=== PATIENT | male | born 1950 | race Caucasian/White ===

== ENCOUNTER → 2016-11-22 | Outpatient (CLI) | payer MEDICARE, BC ==
[~2016-11-22] MED LIST: ASPEC325 PO; CLB200 PO; LOSA1TAB38 PO; METF1000 PO; METO-551 PO; MULT-506 PO; OMEG10007 PO; OXYSR10 PO; SIMV20TA2 PO; SNK PO
[2016-11-22 13:09] LABS: ESTIMATED AVERAGE GLUCOSE 143 mg/dl; HA1C FLAG Normal (Normal)
[2016-11-22 14:01] LABS: CHOLESTEROL/HDL RATIO 4.5; THYROID STIMULATING HORMONE 2.78 uIu/ml (0.300-4.500)
[2016-11-22 20:01] LABS: RATIO 307.1 mcg/mg (0-30.0)
== END | disposition home or self-care (01) ==
LOC: C.LABMFLN 11:30
PROVIDERS: ATTEND Family Medicine
DX: E11.9 Type 2 diabetes mellitus without complications (principal); E78.5 Hyperlipidemia, unspecified

== ENCOUNTER → 2016-12-10 | Outpatient (CLI) | payer MEDICARE, BC ==
[2016-12-10 10:06] LABS: PATIENT HEIGHT 182.9 cm
[2016-12-10 13:40] LABS: BLOOD UREA NITROGEN 17 mg/dl (7-18); BUN/CREATININE RATIO 16.8 (10-20); CALCIUM 9.8 mg/dl (8.5-10.1); CARBON DIOXIDE 25 mmol/L (21-32); CHLORIDE 103 mmol/L (98-107); CREATININE 0.98 mg/dl (0.60-1.40); GLUCOSE 145 mg/dl (70-99); PHOSPHORUS 3.2 mg/dl (2.5-4.9); POTASSIUM 4.6 mmol/L (3.5-5.1); SODIUM 139 mmol/L (136-145)
[2016-12-10 13:52] LABS: URINE TOTAL PROTEIN 24.1 mg/dl (0-11.9)
[2016-12-10 13:55] LABS: URINE APPEARANCE CLOUDY (CLEAR); URINE BILIRUBIN NEG (NEG); URINE COLOR DK YELLOW; URINE EPITHELIAL CELL AUTO 0-5 /lpf (0-5); URINE NITRITE POS (NEG); URINE PH 5.5 (4.5-7.5); URINE SPECIFIC GRAVITY 1.021 (1.000-1.030); UROBILINOGEN NEG (NEG)
[2016-12-10 13:58] LABS: MANUAL MICROSCOPIC REQUIRED? NO; REVIEW REQ? NO
[2016-12-10 14:03] LABS: URINE PROTIEN/CREAT RATIO 0.2 (0-0.2); URINE TOTAL PROTEIN 35.8 mg/dl (0-11.9)
[2016-12-10 15:18] LABS: URINE TOTAL PROTEIN CALC 277.2 mg/24 hr (0-149.1)
[2016-12-12 07:48] LABS: ALBUMIN % 51.62 %; ALPHA-2-GLOBULIN % 14.45 %; CREATININE UR 175 MG/DL (20-370); GAMMA GLOBULIN % 12.81 %
[2016-12-13 16:36] LABS: ALBUMIN 4.3 G/DL (3.8-4.8); TOTAL PROTEIN 7.2 G/DL (6.2-8.3)
== END | disposition home or self-care (01) ==
LOC: C.LABMFLN 12:04
PROVIDERS: ATTEND Internal Medicine Nephrology
DX: R80.9 Proteinuria, unspecified (principal)

== ENCOUNTER → 2017-02-21 | Outpatient (CLI) | payer MEDICARE, BC ==
[2017-02-21 13:09] LABS: ESTIMATED AVERAGE GLUCOSE 134 mg/dl; HA1C FLAG Normal (Normal)
== END | disposition home or self-care (01) ==
LOC: C.LABMFLN 09:42
PROVIDERS: ATTEND Family Medicine
DX: E11.9 Type 2 diabetes mellitus without complications (principal)

== ENCOUNTER → 2017-05-30 | Outpatient (CLI) | payer MEDICARE, BC ==
[2017-05-30 13:49] LABS: ESTIMATED AVERAGE GLUCOSE 126 mg/dl; HA1C FLAG Normal (Normal)
== END | disposition home or self-care (01) ==
LOC: C.LABMFLN 11:03
PROVIDERS: ATTEND Family Medicine
DX: Z00.00 Encounter for general adult medical examination without abnormal findings (principal); E11.9 Type 2 diabetes mellitus without complications

== ENCOUNTER → 2017-09-12 | Outpatient (CLI) | payer MEDICARE ==
[2017-09-12 17:58] LABS: BASO % 0.5 %; BASO ABS # 0.02 K/uL (0-0.2); COMPLETE YES; EOS % 2.9 %; HEMATOCRIT 42.7 % (42-52); IG% 0.2 %; LYMPH % 24.6 %; LYMPH ABS # 1.09 K/uL (1.2-3.4); MEAN PLATELET VOLUME 10.1 fL (7.4-10.4); MONO % 14.7 %; NEUT % 57.1 %; PLATELET COUNT 176 K/uL (130-400); RED BLOOD COUNT 4.27 M/uL (4.7-6.1); WHITE BLOOD COUNT 4.43 K/uL (4.8-10.8)
[2017-09-12 18:07] LABS: BLOOD UREA NITROGEN 19 mg/dl (7-18); BUN/CREATININE RATIO 18.1 (10-20); CALCIUM 9.5 mg/dl (8.5-10.1); CARBON DIOXIDE 29 mmol/L (21-32); CHLORIDE 105 mmol/L (98-107); CREATININE 1.05 mg/dl (0.60-1.40); GLUCOSE 117 mg/dl (70-99); POTASSIUM 4.3 mmol/L (3.5-5.1); SODIUM 137 mmol/L (136-145)
[2017-09-12 18:08] LABS: PHOSPHORUS 2.5 mg/dl (2.5-4.9)
[2017-09-13 06:45] LABS: ESTIMATED AVERAGE GLUCOSE 131 mg/dl; HA1C FLAG Normal (Normal)
== END | disposition home or self-care (01) ==
LOC: C.LABMFLN 14:28
PROVIDERS: ATTEND Family Medicine
DX: E11.9 Type 2 diabetes mellitus without complications (principal)

== ENCOUNTER → 2017-12-18 | Outpatient (CLI) | payer MEDICARE ==
[2017-12-18 13:14] LABS: HEMOGLOBIN A1C 6.4 % (4.5-5.6)
[2017-12-18 13:25] LABS: ALBUMIN 3.8 gm/dl (3.4-5.0); ALT/SGPT 34 U/L (12-78); BLOOD UREA NITROGEN 19 mg/dl (7-18); CALCIUM 9.3 mg/dl (8.5-10.1); CARBON DIOXIDE 27 mmol/L (21-32); CHOLESTEROL 151 mg/dl (0-200); CREATININE 1.03 mg/dl (0.60-1.40); GLUCOSE 139 mg/dl (70-99); POTASSIUM 4.2 mmol/L (3.5-5.1); SODIUM 137 mmol/L (136-145)
[2017-12-18 13:36] LABS: ALKALINE PHOSPHATASE 67 U/L (45-117); AST/SGOT 15 U/L (15-37); LDL CHOLESTEROL CALCULATED 79 mg/dl; TOTAL PROTEIN 7.4 gm/dl (6.4-8.2)
== END | disposition home or self-care (01) ==
LOC: C.LABMFLN 09:26
PROVIDERS: ATTEND Family Medicine
DX: E11.9 Type 2 diabetes mellitus without complications (principal); E78.5 Hyperlipidemia, unspecified

== ENCOUNTER → 2018-04-24 | Outpatient (CLI) | payer MEDICARE ==
[2018-04-24 13:37] LABS: BLOOD UREA NITROGEN 22 mg/dl (7-18); CREATININE 1.11 mg/dl (0.60-1.40)
== END | disposition home or self-care (01) ==
LOC: C.LABMFLN 10:00
PROVIDERS: ATTEND Family Medicine
DX: E11.9 Type 2 diabetes mellitus without complications (principal)

== ENCOUNTER → 2018-04-29 | Outpatient (CLI) | payer MEDICARE ==
--- NOTE | 2018-04-29 15:29 | EEG Procedure Note ---
EEG Procedure Note Date of Service Apr 29, 2018. Start / End Times Start Time: 1353 End Time: [address] Palacios History 68-year-old with history of shaking episodes daily, question seizures Home Medication List Scheduled Aspirin (Aspirin), 325 MG PO BID Celecoxib (Celebrex), 200 MG PO BID Fish Oil ([place]-3), 2 CAP PO QAM Losartan Potassium (Cozaar), 100 MG PO DAILY Metformin Hcl (Glucophage), 1,000 MG PO DAILY Metoprolol Tartrate (Lopressor), 50 MG PO BID Multivitamin (Multivitamin), 1 TAB PO QAM Oxycodone HCl (Oxycontin), 10 MG PO Q12H Senna (Senna Lax), 2 TABS PO QHS Simvastatin (Zocor), 20 MG PO QPM Description This is a 21 electrode EEG with a single channel dedicated to limited EKG. The electrodes were placed in accordance with the International 10-20 system. Interpretation the predominant background activity consists of a somewhat irregular 9-10 hertz activity of up to 75 microvolts in amplitude seen over the posterior head regions bilaterally spreading symmetrically anteriorly diffusely bilaterally. This activity attenuates some with eye opening and other alerting procedures. A mild to moderate amount of muscle and eye blink movement artifact contaminated the recording, hindering interpretation from time to time, but not to any significant degree overall. photic stimulation produced no change in the background activity and no abnormal responses were noted. Hyperventilation was not performed during this EEG. Throughout the recording, no focal abnormalities, potentially epileptogenic activity, or abnormal slow activity was seen. The patient did not entered the drowsy state or deeper stages of sleep. In summary this study is normal during wakefulness with no focal abnormalities or potentially epileptogenic discharges seen. Clinical Correlation The absence of potentially epileptogenic activity during an EEG does not exclude seizure disorders, since interictally, EEGs can be normal and clinical correlation is required.
== END | disposition home or self-care (01) ==
LOC: C.NEUR 13:41
PROVIDERS: ATTEND Family Medicine
DX: R51 Headache (principal); R25.1 Tremor, unspecified

== ENCOUNTER → 2018-05-01 | Outpatient (CLI) | payer MEDICARE ==
[~2018-05-01] MED LIST changes: +GADAVIST IV PRN
--- NOTE | 2018-05-01 09:57 | DIAGNOSTIC IMAGING REPORT ---
ORBITS FOR MRI HISTORY: Pre-MRI pre-MRI screening. COMPARISON: None. FINDINGS: There are no radiopaque foreign bodies identified within the orbits. IMPRESSION: No radiopaque foreign bodies identified within the orbits. The above report was generated using voice recognition software. It may contain grammatical, syntax or spelling errors. Electronically signed by: Omar Mooney M.D. 05/01/2018 9:56 AM Dictated Date/Time: 05/01/2018 9:56 AM
--- NOTE | 2018-05-01 11:26 | DIAGNOSTIC IMAGING REPORT ---
BRAIN COMBO CLINICAL HISTORY: C34.90 Non-small cell carcinoma of lungR51 Headache lung carcinoma. Mental status change. COMPARISON STUDY: No previous studies for comparison. TECHNIQUE: Utilizing a 1.5 Haily magnet and dedicated coil, multiplanar, multiecho imaging of the brain was performed pre and postcontrast administration. IV administration of 10.5 mL of Gadavist contrast was uneventful. FINDINGS: Findings consistent with developing metastatic change. 1.0 cm enhancing nodule mid right cerebellar hemisphere with moderate surrounding reactive edematous change. 1 cm enhancing nodule left frontal lobe with surrounding vasogenic edema. 1.8 cm nodule left occipital lobe with considerable surrounding vasogenic edema. Partial effacement occipital horn left lateral ventricle although no significant midline shift. Findings of a mild chronic small vessel change. Mild age-related atrophy. IMPRESSION: 1. Findings consistent with intracranial metastatic change.. 2. There are at least 2 metastatic foci within the the left cerebral hemisphere with one within the right mid cerebellum. 3. Moderate reactive vasogenic edema at all sites with partial effacement occipital horn left lateral ventricle. The above report was generated using voice recognition software. It may contain grammatical, syntax or spelling errors. Electronically signed by: Omar Mooney M.D. 05/01/2018 11:25 AM Dictated Date/Time: 05/01/2018 11:16 AM
== END | disposition home or self-care (01) ==
LOC: C.MRI 09:28
PROVIDERS: ATTEND Family Medicine
DX: C34.90 Malignant neoplasm of unspecified part of unspecified bronchus or lung (principal); R51 Headache; C79.31 Secondary malignant neoplasm of brain